=== PATIENT | female | born 1945 | race Caucasian/White ===

== ENCOUNTER 2018-07-01 14:17 | Emergency (ER) | payer OTHER ==
[~2018-07-01] VITALS: Ht 162.6 cm; Wt 45.4 kg
[2018-07-01] MEDS ORDERED: SODIUM CHLORIDE 0.9% 1,000 ML IV ONE (14:45)
[2018-07-01 15:44] LABS: Basophils # (auto) 0 uL; Basophils % (auto) 0.4 % (0.0-2.0); Eosinophils # (auto) 0 uL; Eosinophils % (auto) 0.3 % (0.0-7.0); Hematocrit 39.2 % (36.0-46.0); Hemoglobin 13.2 g/dL (12.2-16.2); Lymphocytes # (auto) 1.5 uL; Lymphocytes % (auto) 13.5 % (10.0-50.0); Mean Corpuscular Hgb Conc. 33.7 g/dL (32.0-36.0); Monocytes # (auto) 0.8 uL; Monocytes % (auto) 6.9 % (0.0-12.0); Neutrophils # (auto) 8.8 uL; Neutrophils % (auto) 78.9 % (37.0-80.0); Platelet Count (auto) 301 10^3/uL (140-450); Red Blood Cells 4.55 10^6/uL (4.0-5.20); Red Cell Distribution Width 14.8 % (11.8-14.3); White Blood Cell 11.1 10^3/uL (4.4-10.8)
[2018-07-01 16:13] LABS: Alanine Aminotransferase 23 U/L (13-56); Albumin 3.3 g/dL (3.4-5.0); Alkaline Phosphatase 108 U/L (45-117); Anion Gap 8 (5-15); Aspartate Aminotransferase 16 U/L (15-37); Bilirubin, Total 0.7 mg/dL (0.2-1.0); Blood Urea Nitrogen 13 mg/dL (7-18); Calcium 9.3 mg/dL (8.5-10.1); Carbon Dioxide 28 mmol/L (21-32); Chloride 104 mmol/L (98-107); GFR African American 76 mL/min; GFR Non-African American 63 mL/min; Glucose 100 mg/dL (74-106); Magnesium 2.3 mg/dL (1.6-2.6); Potassium 3.5 mmol/L (3.5-5.1); Sodium 140 mmol/L (136-145); Total Protein 7.2 g/dL (6.4-8.2)
[2018-07-01 19:27] LABS: Urine Bacteria FEW /hpf (None Seen); Urine Blood Negative /uL (Negative); Urine Specific Gravity 1.008 (1.001-1.035); Urine WBC 13 /hpf (0 - 5)
[2018-07-01] MEDS ORDERED: cefTRIAXone 1GM/10ml IVPUSH 10 ML IV ONE (20:00)
[2018-07-01] MEDS ORDERED: cloNIDine HCL 0.1 MG TAB PO ONE (20:00)
[2018-07-01 20:45] VITALS: BP 171/105
== END 2018-07-01 20:35 | disposition short-term general hospital (02) ==
LOC: ER 14:17 → EDBD 14:17 → ER 20:35
DX: F03.90 Unspecified dementia, unspecified severity, without behavioral disturbance, psychotic disturbance, mood disturbance, and anxiety (principal); N39.0 Urinary tract infection, site not specified
CPT/HCPCS: 36415; 71045; 80053; 81001; 82550; 83735; 84484; 85025; 93005; 94761; 96374; 99285; J0696; J7030; A6257